=== PATIENT | male | born 1930 | race Caucasian/White ===

== ENCOUNTER → 2016-08-31 | Outpatient (CLI) | payer MEDICARE, OTHER | DX: I10 Essential (primary) hypertension (principal); E78.5 Hyperlipidemia, unspecified; E53.8 Deficiency of other specified B group vitamins; E03.9 Hypothyroidism, unspecified ==

== ENCOUNTER 2016-09-13 08:43 | Outpatient (CLI) | payer MEDICARE, OTHER | END 2016-09-13 08:44 | disposition home or self-care (01) | DX: G47.31 Primary central sleep apnea (principal); G25.81 Restless legs syndrome | CPT/HCPCS: 99205; G0463 ==

== ENCOUNTER 2016-09-26 09:01 | Outpatient (CLI) | payer MEDICARE, OTHER | END 2016-09-26 09:02 | disposition home or self-care (01) | DX: Z85.528 Personal history of other malignant neoplasm of kidney (principal); D63.8 Anemia in other chronic diseases classified elsewhere; C61 Malignant neoplasm of prostate; E53.8 Deficiency of other specified B group vitamins; N18.4 Chronic kidney disease, stage 4 (severe) ==

== ENCOUNTER 2016-09-30 08:40 | Outpatient (CLI) | payer MEDICARE, OTHER | END 2016-09-30 08:41 | disposition home or self-care (01) | DX: R80.9 Proteinuria, unspecified (principal) ==

== ENCOUNTER 2016-10-05 14:21 | Outpatient (CLI) | payer MEDICARE, OTHER | END 2016-10-05 14:22 | disposition home or self-care (01) | DX: N17.9 Acute kidney failure, unspecified (principal); Z90.5 Acquired absence of kidney ==

== ENCOUNTER 2016-10-09 20:22 | Outpatient (CLI) | payer MEDICARE, OTHER | END 2016-10-09 20:23 | disposition home or self-care (01) | DX: G47.33 Obstructive sleep apnea (adult) (pediatric) (principal); G47.61 Periodic limb movement disorder ==

== ENCOUNTER 2016-11-01 13:25 | Outpatient (CLI) | payer MEDICARE, OTHER | END 2016-11-01 13:26 | disposition home or self-care (01) | DX: N05.9 Unspecified nephritic syndrome with unspecified morphologic changes (principal); E83.30 Disorder of phosphorus metabolism, unspecified; N25.81 Secondary hyperparathyroidism of renal origin ==

== ENCOUNTER 2016-11-01 14:19 | Outpatient (CLI) | payer MEDICARE, OTHER | END 2016-11-01 14:20 | disposition home or self-care (01) | DX: G47.31 Primary central sleep apnea (principal); G47.61 Periodic limb movement disorder; N05.9 Unspecified nephritic syndrome with unspecified morphologic changes; E83.30 Disorder of phosphorus metabolism, unspecified; N25.81 Secondary hyperparathyroidism of renal origin | CPT/HCPCS: 36415; 80048; 83970; 84100; 99214; G0463 ==

== ENCOUNTER 2016-12-06 09:54 | Outpatient (CLI) | payer MEDICARE, OTHER | END 2016-12-06 09:55 | disposition home or self-care (01) | DX: G47.31 Primary central sleep apnea (principal) | CPT/HCPCS: 99214; G0463 ==

== ENCOUNTER 2017-01-16 09:35 | Outpatient (CLI) | payer MEDICARE, OTHER ==
[2017-01-16 14:34] LABS: HCT - HEMATOCRIT 35.7 % (42.0-52.0); HGB - HEMOGLOBIN 12.2 g/dL (14.0-18.0); MEAN CORPUSCULAR HEMOGLOBIN 33.2 pg (27.0-31.0); MEAN CORPUSCULAR HGB CONC 34.1 g/dL (32.0-36.0); MEAN CORPUSCULAR VOLUME 97.3 fL (80.0-94.0); MEAN PLATELET VOLUME 8.9 fL (7.4-11.4); RED BLOOD COUNT 3.67 10^6/uL (4.70-6.10); RED CELL DISTRIBUTION WIDTH 13.3 % (12.0-15.0); WHITE BLOOD COUNT 7.5 x10^3/uL (4.8-10.8)
[2017-01-16 14:52] LABS: CALCIUM 9.4 mg/dL (8.5-10.3); POTASSIUM 4.4 mmol/L (3.5-5.0)
== END 2017-01-16 09:36 | disposition home or self-care (01) ==
LOC: LAB.WCP 09:35
PROVIDERS: ATTEND Family Medicine
DX: R60.9 Edema, unspecified (principal)
CPT/HCPCS: 36415; 80048; 83880; 85025

== ENCOUNTER 2017-01-20 12:26 | Outpatient (CLI) | payer MEDICARE, OTHER | END 2017-01-20 12:27 | disposition home or self-care (01) | LOC: DI 12:26 | PROVIDERS: ATTEND Family Medicine | DX: R60.9 Edema, unspecified (principal); I12.9 Hypertensive chronic kidney disease with stage 1 through stage 4 chronic kidney disease, or unspecified chronic kidney disease; N18.3 Chronic kidney disease, stage 3 (moderate); I51.7 Cardiomegaly; I34.0 Nonrheumatic mitral (valve) insufficiency | CPT/HCPCS: 93306 ==

== ENCOUNTER 2017-03-17 11:42 | Outpatient (CLI) | payer MEDICARE, OTHER ==
--- NOTE | 2017-03-17 14:55 | XRAY Report ---
TWO-VIEW LEFT KNEE: 03/17/2017 CLINICAL INDICATION: Pain. FINDINGS: Frontal and lateral views of the left knee demonstrate no evidence of fracture or dislocat ion. No effusion is present. IMPRESSION: NORMAL LEFT KNEE. JOB #: [id number] EXT JOB #:[id number]
== END 2017-03-17 11:43 | disposition home or self-care (01) ==
LOC: DI 11:42
PROVIDERS: ATTEND Family Medicine
DX: M25.562 Pain in left knee (principal)

== ENCOUNTER 2017-04-11 13:46 | Outpatient (CLI) | payer MEDICARE, OTHER | END 2017-04-11 13:47 | disposition home or self-care (01) | LOC: SC 13:46 | PROVIDERS: ATTEND Specialist | DX: G47.33 Obstructive sleep apnea (adult) (pediatric) (principal) | CPT/HCPCS: 99214; G0463; 99212 ==

== ENCOUNTER 2017-05-10 14:54 | Outpatient (CLI) | payer MEDICARE, OTHER ==
[2017-05-10 19:12] LABS: BASOPHILS % (AUTO) 0.4 %; EOSINOPHILS % (AUTO) 0.3 %; HCT - HEMATOCRIT 37.2 % (42.0-52.0); HGB - HEMOGLOBIN 12.3 g/dL (14.0-18.0); LYMPHOCYTES # (AUTO) 0.7 10^3/uL (1.5-3.5); LYMPHOCYTES % (AUTO) 6.3 %; MEAN CORPUSCULAR HEMOGLOBIN 32.7 pg (27.0-31.0); MEAN CORPUSCULAR HGB CONC 32.9 g/dL (32.0-36.0); MEAN CORPUSCULAR VOLUME 99.4 fL (80.0-94.0); MEAN PLATELET VOLUME 8.5 fL (7.4-11.4); MONOCYTES # (AUTO) 1.1 10^3/uL (0.0-1.0); MONOCYTES % (AUTO) 9.2 %; NEUTROPHILS # (AUTO) 9.6 10^3/uL (1.5-6.6); NEUTROPHILS % (AUTO) 83.8 %; RED BLOOD COUNT 3.75 10^6/uL (4.70-6.10); RED CELL DISTRIBUTION WIDTH 14.5 % (12.0-15.0); UNCORRECTED WHITE BLOOD COUNT 11.4 x10^3/uL; WHITE BLOOD COUNT 11.4 x10^3/uL (4.8-10.8)
[2017-05-10 19:36] LABS: ALBUMIN/GLOBULIN RATIO 1.7 (1.0-2.2); CALCIUM 9.3 mg/dL (8.5-10.3); CREATININE 1.8 mg/dL (0.6-1.2); POTASSIUM 4.3 mmol/L (3.5-5.0)
[2017-05-10 19:42] LABS: IRON 57 ug/dL (45-182); TOTAL IRON BINDING CAPACITY 319 ug/dL (250-450); TRANSFERRIN 228 mg/dL (180-329)
[2017-05-10 19:55] LABS: PLATELET ESTIMATE, MANUAL NORMAL (130-450,000) (NORMAL); PLATELET MORPHOLOGY NORMAL APPEARANCE (NORMAL); WBC MORPHOLOGY (MULTIPLE) 1+ HYPERSEG NEUT (NORMAL)
== END 2017-05-10 14:55 | disposition home or self-care (01) ==
LOC: LAB.WCP 14:54
PROVIDERS: ATTEND Family Medicine
DX: N18.3 Chronic kidney disease, stage 3 (moderate) (principal); E53.8 Deficiency of other specified B group vitamins; D63.8 Anemia in other chronic diseases classified elsewhere; D50.0 Iron deficiency anemia secondary to blood loss (chronic); N05.9 Unspecified nephritic syndrome with unspecified morphologic changes; D70.9 Neutropenia, unspecified; D63.1 Anemia in chronic kidney disease
CPT/HCPCS: 36415; 80053; 82607; 82728; 83540; 84466; 85025

== ENCOUNTER 2017-05-30 20:30 | Outpatient (CLI) | payer MEDICARE, OTHER | END 2017-05-30 20:31 | disposition home or self-care (01) | LOC: SC 20:30 | PROVIDERS: ATTEND Specialist | DX: G47.33 Obstructive sleep apnea (adult) (pediatric) (principal); G47.31 Primary central sleep apnea | CPT/HCPCS: 95811 ==

== ENCOUNTER 2017-06-15 08:34 | Outpatient (CLI) | payer MEDICARE, OTHER | END 2017-06-15 08:35 | disposition home or self-care (01) | LOC: SC 08:34 | PROVIDERS: ATTEND Specialist | DX: G47.33 Obstructive sleep apnea (adult) (pediatric) (principal); G47.31 Primary central sleep apnea | CPT/HCPCS: 99214; G0463; 99212 ==

== ENCOUNTER 2017-06-28 15:59 | Outpatient (CLI) | payer MEDICARE, OTHER ==
[2017-06-28 12:45] LABS: BASOPHILS % (AUTO) 0.2 %; EOSINOPHILS % (AUTO) 1.1 %; HCT - HEMATOCRIT 36.9 % (42.0-52.0); HGB - HEMOGLOBIN 12.8 g/dL (14.0-18.0); LYMPHOCYTES % (AUTO) 8.3 %; MEAN CORPUSCULAR HEMOGLOBIN 34.4 pg (27.0-31.0); MEAN CORPUSCULAR HGB CONC 34.8 g/dL (32.0-36.0); MEAN PLATELET VOLUME 7.9 fL (7.4-11.4); MONOCYTES % (AUTO) 9.9 %; NEUTROPHILS % (AUTO) 80.5 %; RED BLOOD COUNT 3.73 10^6/uL (4.70-6.10); UNCORRECTED WHITE BLOOD COUNT 11.9 x10^3/uL; WHITE BLOOD COUNT 11.9 x10^3/uL (4.8-10.8)
[2017-06-28 12:56] LABS: CALCIUM 9.2 mg/dL (8.5-10.3); CREATININE 1.8 mg/dL (0.6-1.2); POTASSIUM 4.3 mmol/L (3.5-5.0)
[2017-06-28 13:02] LABS: BAND NEUTROPHILS % (MANUAL) 0 %
[2017-06-28 13:04] LABS: EOSINOPHILS % (MANUAL) 2 %; LYMPHOCYTES % (MANUAL) 10 %; NEUTROPHILS % (MANUAL) 72 %; TOTAL CELLS COUNTED 100
[2017-06-28 13:05] LABS: NP AUTO DIFFERENTIAL? YES; NP MAN DIFFERENTIAL? NO; PLATELET ESTIMATE, MANUAL NORMAL (130-450,000) (NORMAL); PLATELET MORPHOLOGY NORMAL APPEARANCE (NORMAL); WBC MORPHOLOGY (MULTIPLE) NORMAL APP (NORMAL)
== END 2017-06-28 16:00 | disposition home or self-care (01) ==
LOC: LAB.WCP 15:59
PROVIDERS: ATTEND Family Medicine
DX: N18.3 Chronic kidney disease, stage 3 (moderate) (principal); M12.852 Other specific arthropathies, not elsewhere classified, left hip
CPT/HCPCS: 36415; 80048; 85025; 87640

== ENCOUNTER 2017-07-13 09:32 | Outpatient (CLI) | payer MEDICARE, OTHER | END 2017-07-13 09:33 | disposition home or self-care (01) | LOC: SC 09:32 | PROVIDERS: ATTEND Specialist | DX: G47.31 Primary central sleep apnea (principal); G47.39 Other sleep apnea | CPT/HCPCS: 99214; G0463; 99212 ==

== ENCOUNTER 2017-08-21 10:57 | Outpatient (CLI) | payer MEDICARE, OTHER | END 2017-08-21 10:58 | disposition home or self-care (01) | LOC: SC 10:57 | PROVIDERS: ATTEND Internal Medicine Pulmonary Disease | DX: G47.39 Other sleep apnea (principal); Z01.812 Encounter for preprocedural laboratory examination; M16.12 Unilateral primary osteoarthritis, left hip | CPT/HCPCS: 36415; 86850; 86900; 86901; 99213; G0463; 99212 ==

== ENCOUNTER 2017-08-21 15:29 | Outpatient (CLI) | payer MEDICARE, OTHER | END 2017-08-21 15:30 | disposition home or self-care (01) | LOC: LAB 15:29 | PROVIDERS: ATTEND Orthopaedic Surgery | DX: Z01.812 Encounter for preprocedural laboratory examination (principal); M16.12 Unilateral primary osteoarthritis, left hip | CPT/HCPCS: 36415; 86850; 86900; 86901 ==

== ENCOUNTER 2017-08-22 07:30 | Inpatient (IN) | payer MEDICARE, OTHER ==
[2017-08-22] MEDS ORDERED: ceFAZolin 2 GM/50 ML 2 GM/50 ML BAG IV ONE (08:46)
[2017-08-22] MEDS ORDERED: LACTATED RINGERS 1,000 ML IV ONE ×3 (09:41→12:47)
[2017-08-22] MEDS ORDERED: ACETAMINOPHEN 1,000 MG/100 ML 100 ML IV ONE (10:12)
[2017-08-22] MEDS ORDERED: LIDOCAINE-MPF 2% 5 ML VIAL IM ONE (11:00)
[2017-08-22] MEDS ORDERED: TRANEXAMIC ACID 1,000 MG/10 ML VIAL IV ONE (11:00)
[2017-08-22] MEDS ORDERED: fentaNYL 100 MCG/2 ML VIAL IVP ONE (11:00)
[2017-08-22] MEDS ORDERED: PROPOFOL 200 MG/20 ML VIAL IVP ONE (11:00)
[2017-08-22] MEDS ORDERED: GLYCOPYRROLATE 1 MG/5 ML VIAL IVP ONE (11:00)
[2017-08-22] MEDS ORDERED: NEOSTIGMINE 1 MG/1 ML 10 ML MDV IVP ONE (11:00)
[2017-08-22] MEDS ORDERED: MORPHINE PF 5 MG/10 ML AMP EP ONE (11:00)
[2017-08-22] MEDS ORDERED: DEXAMETHASONE 4 MG/ML VIAL IVP ONE (11:00)
[2017-08-22] MEDS ORDERED: ONDANSETRON 4 MG/2 ML VIAL IVP ONE (11:00)
[2017-08-22] MEDS ORDERED: ROCURONIUM 50 MG/5 ML VIAL IVP ONE (11:00)
[2017-08-22] MEDS ORDERED: MORPHINE PF 5 MG/10 ML AMP SUBQ ONE (11:34)
[2017-08-22] MEDS ORDERED: KETOROLAC 15 MG/ML VIAL IVP ONE (11:35)
[2017-08-22] MEDS ORDERED: EPINEPHrine 1 MG/ML AMP IVP ONE (11:36)
[2017-08-22] MEDS ORDERED: ROPIVACAINE 0.5% PF 20 ML AMPULE SUBQ ONE (11:41)
[2017-08-22] MEDS ORDERED: BUPIVACAINE 0.5% PF 30 ML VIAL INFIL ONE (12:58)
--- NOTE | 2017-08-22 13:21 | OPERATIVE REPORT ---
Operative Report - General Admit Date: 08/22/17 Procedure Date: 08/22/17 Planned Procedure: Left WILLOW Pre-Op Diagnosis: severe DJD left hip Procedure Performed: Left Total hip replacement Post Op Diagnosis: same - Procedure Note Primary Surgeon: sam Anesthesia Provider: Yimi Leroy Anesthesia Technique: General ET tube Estimated Blood Loss (mL): 300
[2017-08-22] MEDS ORDERED: ONDANSETRON 4 MG/2 ML VIAL IVP PRN (13:23)
[2017-08-22] MEDS ORDERED: ACETAMINOPHEN 1,000 MG/100 ML 100 ML IV PRN (13:23)
[2017-08-22] MEDS ORDERED: SODIUM CHLORIDE FLUSH 0.9% 10 ML SYRINGE IVP PRN (13:23)
[2017-08-22] MEDS ORDERED: PROCHLORPERAZINE 10 MG/2 ML VIAL IVP PRN (13:23)
[2017-08-22] MEDS ORDERED: HYDROmorphone 1 MG/ML SYRINGE IVP PRN (13:23)
[2017-08-22] MEDS ORDERED: ACETAMINOPHEN 325 MG TABLET PO PRN (13:23)
[2017-08-22] MEDS ORDERED: BISACODYL 10 MG SUPP PR PRN (13:23)
[2017-08-22] MEDS: HYDROmorphone 1 MG/ML SYRINGE ONE ×3 (13:35→14:16)
[2017-08-22] MEDS ORDERED: HYDROmorphone 1 MG/ML SYRINGE ONE (14:13)
--- NOTE | 2017-08-22 18:23 | OPERATIVE REPORT ---
DATE OF SERVICE: 08/22/2017 Physician: Christine Mariee MD DATE OF SURGERY: 08/22/2017. PREOPERATIVE DIAGNOSIS: Left hip osteoarthritis. POSTOPERATIVE DIAGNOSIS: Left hip osteoarthritis. PROCEDURE PERFORMED: Left total hip replacement arthroplasty. OPERATING SURGEON: Leonard Mariee ANESTHESIA: General by Colleen Barker. INDICATIONS FOR SURGERY: Juan is an 87-year-old male with progressive severe arthritis of his left hip, who has had ongoing hip pain and diminished functional activities. He has failed nonoperative treatment. He desires total hip arthroplasty. FINDINGS AT SURGERY: The patient's hip showed diminished range of motion and slight shortening. At arthrotomy, the patient had bloody hemarthrosis in his hip and some loose bodies. His femoral head was misshapen and polished bone. The acetabulum was equally misshapen. The patient's acetabular bone density was very strong on the femoral side, more appropriate for age. DESCRIPTION OF OPERATIVE PROCEDURE: The patient was taken to the operating room and was given a general anesthetic. He was given preoperative IV antibiotics. He was in the supine position. He was positioned for an anterior approach total hip arthroplasty on a standard table with the hinge on the table at the level of his hip. The patient's bilateral lower extremities were sterilely prepped and draped in standard fashion. The area of planned incision on the anterior hip was exposed, marked, and infiltrated after the timeout with Marcaine with epinephrine. Incision was made 8 cm in length directed from anterior superior iliac spine down towards the femur. Incision was dissecting through the soft tissue down to the tensor fascia muscle and its overlying tensor fascia. This was incised in line with the muscle and the inner flap of muscle was reflected from the fascia developing the Raza-Marshall interval for an anterior approach down to the hip. The hip capsule was ultimately exposed with retractors and the fat pad and scar tissue in the area excised. The anterior capsulectomy was performed and retractors were positioned around the femoral neck to allow an osteotomy section of the neck and removal of about a 1 inch section of the neck. Following this, a corkscrew was used to remove the femoral head and it was inspected after which retractors were positioned around the acetabular cavity. The patient's soft tissues were very tight and the exposure was difficult to obtain. Once it was satisfactorily obtained, reaming began with a plan to ream to 51 for a 52 cup. The patient had severely dense bone in his acetabulum and the degree of hemispherical creation by a 51 reamer was not satisfactory and the cup implantation was also not adequate. So the reaming was deepened to allow up to a 53 reamer for a 54 cup and this cup settled into a nice position, was able to be held with screws for security. Anteversion and abduction angle of cup was judged by the insertion guides. A standard poly was inserted into the cup. The femur was then carefully exposed by releasing capsule and some of the short rotators to the hip to allow exposure of the proximal femur and initial rasp insertion for canal finding followed by sequential broaching up to accommodate a size 12 Taperloc stem. This stem was trialed and a trial reduction performed showing excellent jew of limb length, excellent stability to anterior and posterior stress, and jew of muscle tension. The trial femoral component and neck and head were removed. The stem was irrigated thoroughly. The femur and Taperloc stem inserted with a neutral 40 mm head size and a normal offset. This yielded a very stable construct and was reduced into the acetabulum, checked for stability and was excellent. Closure of the hip was done with sequential layers, repairing the anterior muscle layer with Vicryl, including the overlying tensor fascia, the subcutaneous tissue with 0 and 2-0 Vicryl, and the skin with 3-0 Monocryl interrupted. A sterile silver-containing dressing was applied and a soft over dressing of ABDs. The patient was then taken from the OR table to a hospital bed and to the recovery room in stable condition. ESTIMATED BLOOD LOSS for the procedure was less than 200-300 mL COMPLICATIONS: None. COUNTS: Sponge and needle counts were correct. TD: 08/22/2017 19:22
--- NOTE | 2017-08-22 19:51 | XRAY Report ---
DATE OF SERVICE: 08/22/2017 LEFT HIP AND PELVIS: 08/22/2017 CLINICAL INDICATION: Postop. Frontal view of the hips and pelvis and crosstable lateral view of the left hip demonstrate a left hip replacement in place. There is no evidence of acute fracture or hardware complication. Subcutaneous gas is noted in the soft tissues. IMPRESSION: Expected postoperative appearance of left hip replacement. TD: 08/22/2017 20:50
[2017-08-22] MEDS: D5.45NS W/20 MEQ KCL 1,000 ML IV SCH (20:02)
[2017-08-22] MEDS: SODIUM CHLORIDE FLUSH 0.9% 10 ML SYRINGE IVP SCH ×2 (20:02→23:05)
[2017-08-22] MEDS: hydrOXYzine PAMOATE 25 MG CAPSULE PO SCH (20:02)
[2017-08-22] MEDS: DOXAZOSIN 4 MG TABLET PO SCH (20:02)
[2017-08-22] MEDS: amLODIPine 5 MG TABLET PO SCH (20:03)
[2017-08-22] MEDS: rOPINIRole 1 MG TABLET PO SCH (20:03)
[2017-08-22] MEDS ORDERED: TRIAMCINOLONE 55 MCG NASAL SPRAY NAS SCH (21:00)
[2017-08-22] MEDS ORDERED: ENALAPRIL 5 MG TABLET PO SCH (21:00)
[2017-08-22] MEDS: ceFAZolin 2 GM/50 ML 2 GM/50 ML BAG IV SCH (21:57)
[2017-08-23] MEDS: HYDROcod/ACETAM 5/325 MG TABLET PO PRN ×4 (00:04→18:28)
[2017-08-23 05:07] LABS: BASOPHILS % (AUTO) 0.1 %; HGB - HEMOGLOBIN 9.4 g/dL (14.0-18.0); LYMPHOCYTES % (AUTO) 3.9 %; MEAN CORPUSCULAR HEMOGLOBIN 32.6 pg (27.0-31.0); MEAN CORPUSCULAR HGB CONC 32.8 g/dL (32.0-36.0); MEAN CORPUSCULAR VOLUME 99.4 fL (80.0-94.0); MEAN PLATELET VOLUME 8.8 fL (7.4-11.4); MONOCYTES % (AUTO) 9.9 %; NEUTROPHILS % (AUTO) 86.1 %; PLT - PLATELET COUNT 196 10^3/uL (130-450); RED BLOOD COUNT 2.87 10^6/uL (4.70-6.10); RED CELL DISTRIBUTION WIDTH 13.7 % (12.0-15.0); WHITE BLOOD COUNT 16.2 x10^3/uL (4.8-10.8)
[2017-08-23 05:09] LABS: CALCIUM 7.8 mg/dL (8.5-10.3); CREATININE 1.7 mg/dL (0.6-1.2)
[2017-08-23 05:41] LABS: ABNORMAL LYMPHS % (MANUAL) 0 %
[2017-08-23] MEDS ORDERED: LEVOTHYROXINE 25 MCG TABLET ONE (05:54)
[2017-08-23] MEDS: LEVOTHYROXINE 25 MCG TABLET PO SCH (05:57)
[2017-08-23] MEDS: ceFAZolin 2 GM/50 ML 2 GM/50 ML BAG IV SCH (05:57)
[2017-08-23] MEDS: SODIUM CHLORIDE FLUSH 0.9% 10 ML SYRINGE IVP SCH ×3 (05:58→20:57)
[2017-08-23 06:00] LABS: BAND NEUTROPHILS % (MANUAL) 5 %; LYMPHOCYTES % (MANUAL) 6 %; MONOCYTES # (MANUAL) 0.6 10^3/uL (0.0-1.0); NEUTROPHILS # (MANUAL) 14.6 10^3/uL (1.5-6.6); NEUTROPHILS % (MANUAL) 85 %
[2017-08-23 06:02] LABS: DIFFERENTIAL COMMENT MANUAL DIFFERENTIAL; PLATELET ESTIMATE, MANUAL NORMAL (130-450,000) (NORMAL); PLATELET MORPHOLOGY NORMAL APPEARANCE (NORMAL); RBC MORPHOLOGY (MULTIPLE) NORMAL APPEARANCE (NORMAL)
[2017-08-23] MEDS: D5.45NS W/20 MEQ KCL 1,000 ML IV SCH ×2 (06:07→13:09)
--- NOTE | 2017-08-23 08:10 | PROVIDER PROGRESS NOTE ---
Subjective - General Admit Date: 08/22/17 Procedure Date: 08/22/17 Post Op Days: 1 Procedure Performed: Left Total Hip arthroplasty - Review of Systems Wound/Incisions: positive: Dressing dry and intact Gastrointestinal: positive: No symptoms Musculoskeletal: positive: Joint pain, Joint swelling Skin: positive: No symptoms Psychiatric: positive: No symptoms Objective - Patient Data Reviewed Vital Signs: Yes Vital Signs: Vital Signs x48h Temp Pulse Resp BP Pulse Ox 08/23/17 05:49 36.6 C 70 16 133/60 H 99 Weight: Weight 08/21/17 08/22/17 08/23/17 23:59 23:59 23:59 Weight (kg) 78 kg Intake & Output: Intake and Output Totals x24h 08/21/17 08/22/17 08/23/17 23:59 23:59 23:59 Intake Total 550 1450 Output Total 975 200 Balance -425 1250 - Lab Results Lab Results: 08/23/17 08:45 08/23/17 04:10 Other Lab Results: Lab Results x24hrs 08/23/17 08/23/17 Range/Units 04:10 04:10 WBC 16.2 H (4.8-10.8) x10^3/uL RBC 2.87 L (4.70-6.10) 10^6/uL Hgb 9.4 L (14.0-18.0) g/dL Hct 28.6 L (42.0-52.0) % MCV 99.4 H (80.0-94.0) fL MCH 32.6 H (27.0-31.0) pg MCHC 32.8 (32.0-36.0) g/dL RDW 13.7 (12.0-15.0) % Plt Count 196 (130-450) 10^3/uL MPV 8.8 (7.4-11.4) fL Neut # Not Reportable Lymph # Not Reportable [place] # Not Reportable Eos # Not Reportable Baso # Not Reportable Absolute Nucleated RBC Not Reportable Total Counted 100 Band Neuts % (Manual) 5 (0 - 10) % Abnorm Lymph % (Manual) 0 % Nucleated RBC % Not Reportable Neutrophils # (Manual) 14.6 H (1.5-6.6) 10^3/uL Lymphocytes # (Manual) 1.0 L (1.5-3.5) 10^3/uL Monocytes # (Manual) 0.6 (0.0-1.0) 10^3/uL Eosinophils # (Manual) 0.0 (0-0.7) 10^3/uL Basophils # (Manual) 0.0 (0-0.1) 10^3/uL Differential Comment MANUAL DIFFERENTIAL Platelet Estimate NORMAL (130-450,000) (NORMAL) Platelet Morphology NORMAL APPEARANCE (NORMAL) RBC Morph Micro Appear NORMAL APPEARANCE (NORMAL) Sodium 136 (135-145) mmol/L Potassium 4.6 (3.5-5.0) mmol/L Chloride 101 (101-111) mmol/L Carbon Dioxide 25 (21-32) mmol/L Anion Gap 10.0 (6-13) BUN 27 H (6-20) mg/dL Creatinine 1.7 H (0.6-1.2) mg/dL Estimated GFR (MDRD) 38 L (>89) Glucose 169 H (70-100) mg/dL Calcium 7.8 L (8.5-10.3) mg/dL - Current Medications Current Medications: Current Medications Generic Name Dose Route Start Last Admin Trade Name Freq PRN Reason Stop Dose Admin Acetaminophen/Hydrocodone Bitart 1 tab 08/22/17 16:14 08/23/17 05:56 [place] 5/325 PO 1 tab Q6H PRN Administration PAIN Amlodipine Besylate 5 mg 08/22/17 21:00 08/22/17 20:03 Norvasc PO 5 mg QPM EARL Administration Doxazosin Mesylate 4 mg 08/22/17 21:00 08/22/17 20:02 Cardura PO 4 mg BID EARL Administration Hydroxyzine Pamoate 25 mg 08/22/17 21:00 08/22/17 20:02 Vistaril PO 25 mg QPM EARL Administration Potassium Chloride/Dextrose/Sod Cl 1,000 mls @ 100 mls/hr 08/22/17 14:00 06:07 D5.45ns W/20 Meq Kcl IV 100 mls/hr .Q10H EARL Administration Levothyroxine Sodium 25 mcg 08/23/17 07:00 08/23/17 05:57 Synthroid PO 25 mcg QDAC EARL Administration Ropinirole HCl 2 mg 08/22/17 21:00 08/22/17 20:03 Requip PO 2 mg QPM EARL Administration Sodium Chloride 10 ml 08/22/17 14:00 08/23/17 05:58 Normal Saline Flush 0.9% IVP Not Given Q8HR EARL - Physical Exam Wound/Incisions: positive: Dressing dry and intact General Appearance: positive: No acute distress Cardiovascular: positive: Regular rate & rhythm Skin: positive: Warm, Dry Extremities: positive: Joint swelling Neurologic/Psychiatric: positive: Motor nml, Sensation nml, Mood/affect nml Impression/Plan - Problem List Problem List: POD#1 Pt is alert and doing well. claims very little pain Plan to begin PT Will watch hct/hgb. ASA for DVT prophylaxis
[2017-08-23] MEDS ORDERED: NON FORMULARY MED (Multivitamin [Multiple Vitamins] 1 TAB) ORAL SCH (09:00)
[2017-08-23] MEDS ORDERED: CALCIUM CARBONATE ORAL SCH (09:00)
[2017-08-23] MEDS ORDERED: VITAMIN D3 ORAL SCH (09:00)
[2017-08-23] MEDS: DOXAZOSIN 4 MG TABLET PO SCH ×2 (09:44→20:56)
[2017-08-23] MEDS: ATORVASTATIN 10 MG TABLET PO SCH (09:44)
[2017-08-23] MEDS: ASPIRIN EC 325 MG TABLET PO SCH (13:19)
[2017-08-23] MEDS: SENNA 8.6 MG TABLET PO PRN (13:19)
[2017-08-23] MEDS: amLODIPine 5 MG TABLET PO SCH (20:56)
[2017-08-23] MEDS: hydrOXYzine PAMOATE 25 MG CAPSULE PO SCH (20:56)
[2017-08-23] MEDS: rOPINIRole 1 MG TABLET PO SCH (20:56)
[2017-08-24] MEDS: SODIUM CHLORIDE FLUSH 0.9% 10 ML SYRINGE IVP SCH ×3 (05:33→21:09)
[2017-08-24] MEDS: HYDROcod/ACETAM 5/325 MG TABLET PO PRN ×3 (05:33→17:50)
[2017-08-24] MEDS: LEVOTHYROXINE 25 MCG TABLET PO SCH (05:33)
[2017-08-24] MEDS: POLYETHYLENE GLYCOL 3350 17 GM PACKET PO SCH (08:30)
[2017-08-24] MEDS: DOXAZOSIN 4 MG TABLET PO SCH ×2 (08:33→21:09)
[2017-08-24] MEDS: ATORVASTATIN 10 MG TABLET PO SCH (08:33)
[2017-08-24] MEDS: ASPIRIN EC 325 MG TABLET PO SCH (08:33)
[2017-08-24] MEDS: SENNA 8.6 MG TABLET PO PRN ×2 (08:33→21:09)
--- NOTE | 2017-08-24 09:00 | PROVIDER PROGRESS NOTE ---
Subjective - General Admit Date: 08/22/17 Procedure Date: 08/22/17 Post Op Days: 2 Procedure Performed: Left Total Hip arthroplasty - Review of Systems Wound/Incisions: positive: Dressing dry and intact Gastrointestinal: positive: No symptoms Musculoskeletal: positive: Joint pain, Joint swelling Skin: positive: No symptoms Psychiatric: positive: No symptoms Objective - Patient Data Reviewed Vital Signs: Yes Vital Signs: Vital Signs x48h Temp Pulse Resp BP Pulse Ox 08/24/17 08:23 73 15 100/77 08/24/17 05:11 36.6 C 85 16 143/60 H 95 08/24/17 01:37 36.8 C 95 16 156/73 H 97 Weight: Weight 08/22/17 08/23/17 08/24/17 23:59 23:59 23:59 Weight (kg) 78 kg Intake & Output: Intake and Output Totals x24h 08/22/17 08/23/17 08/24/17 23:59 23:59 23:59 Intake Total 550 4090 520 Output Total 975 475 650 Balance -425 3615 -130 - Lab Results Lab Results: 08/24/17 10:15 08/23/17 04:10 Other Lab Results: Lab Results x24hrs 08/23/17 Range/Units 08:45 Hgb 9.0 L (14.0-18.0) g/dL Hct 26.8 L (42.0-52.0) % - Current Medications Current Medications: Current Medications Generic Name Dose Route Start Last Admin Trade Name Freq PRN Reason Stop Dose Admin Acetaminophen/Hydrocodone Bitart 1 tab 08/22/17 16:14 08/24/17 05:33 [place] 5/325 PO 1 tab Q6H PRN Administration PAIN Amlodipine Besylate 5 mg 08/22/17 21:00 08/23/17 20:56 Norvasc PO 5 mg QPM EARL Administration Aspirin 325 mg 08/23/17 12:00 08/24/17 08:33 Ecotrin PO 325 mg DAILY EARL Administration Atorvastatin Calcium 10 mg 08/23/17 09:00 08/24/17 08:33 Lipitor PO 10 mg DAILY EARL Administration Doxazosin Mesylate 4 mg 08/22/17 21:00 08/24/17 08:33 Cardura PO 4 mg BID EARL Administration Hydroxyzine Pamoate 25 mg 08/22/17 21:00 08/23/17 20:56 Vistaril PO 25 mg QPM EARL Administration Levothyroxine Sodium 25 mcg 08/23/17 07:00 08/24/17 05:33 Synthroid PO 25 mcg QDAC EARL Administration Polyethylene Glycol 17 gm 08/24/17 09:00 08/24/17 08:30 Miralax PO 17 gm DAILY EARL Administration Ropinirole HCl 2 mg 08/22/17 21:00 08/23/17 20:56 Requip PO 2 mg QPM EARL Administration Senna 17.2 mg 08/22/17 13:23 08/24/17 08:33 Senokot PO 17.2 mg Q12H PRN Administration Constipation Sodium Chloride 10 ml 08/22/17 14:00 08/24/17 05:33 Normal Saline Flush 0.9% IVP 10 ml Q8HR EARL Administration - Physical Exam Wound/Incisions: positive: Dressing dry and intact General Appearance: positive: No acute distress Abdomen: positive: No distention Skin: positive: Warm, Dry Extremities: positive: Joint swelling Neurologic/Psychiatric: positive: Motor nml, Sensation nml, Mood/affect nml Impression/Plan - Problem List Problem List: POD #2 Pt is doing better with less pain. PT has begun. suggested plan for SNF placement at discharge.
[2017-08-24 10:45] LABS: BASOPHILS % (AUTO) 0.1 %; EOSINOPHILS % (AUTO) 0.1 %; LYMPHOCYTES # (AUTO) 0.6 10^3/uL (1.5-3.5); LYMPHOCYTES % (AUTO) 5.6 %; MEAN CORPUSCULAR HEMOGLOBIN 34.1 pg (27.0-31.0); MEAN CORPUSCULAR HGB CONC 34.3 g/dL (32.0-36.0); MEAN CORPUSCULAR VOLUME 99.6 fL (80.0-94.0); MEAN PLATELET VOLUME 8.9 fL (7.4-11.4); MONOCYTES # (AUTO) 1.2 10^3/uL (0.0-1.0); MONOCYTES % (AUTO) 11.7 %; NEUTROPHILS # (AUTO) 8.6 10^3/uL (1.5-6.6); NEUTROPHILS % (AUTO) 82.5 %; PLT - PLATELET COUNT 158 10^3/uL (130-450); RED BLOOD COUNT 2.63 10^6/uL (4.70-6.10); RED CELL DISTRIBUTION WIDTH 13.9 % (12.0-15.0); WHITE BLOOD COUNT 10.4 x10^3/uL (4.8-10.8)
[2017-08-24] MEDS: amLODIPine 5 MG TABLET PO SCH (21:09)
[2017-08-24] MEDS: rOPINIRole 1 MG TABLET PO SCH (21:09)
[2017-08-24] MEDS: hydrOXYzine PAMOATE 25 MG CAPSULE PO SCH (21:09)
[2017-08-25] MEDS: HYDROcod/ACETAM 5/325 MG TABLET PO PRN ×2 (04:25→12:33)
[2017-08-25 05:06] LABS: HGB - HEMOGLOBIN 9.1 g/dL (14.0-18.0); MEAN CORPUSCULAR HEMOGLOBIN 33.6 pg (27.0-31.0); MEAN CORPUSCULAR HGB CONC 34.1 g/dL (32.0-36.0); MEAN CORPUSCULAR VOLUME 98.5 fL (80.0-94.0); MEAN PLATELET VOLUME 8.6 fL (7.4-11.4); RED BLOOD COUNT 2.71 10^6/uL (4.70-6.10); RED CELL DISTRIBUTION WIDTH 13.7 % (12.0-15.0); WHITE BLOOD COUNT 10.9 x10^3/uL (4.8-10.8)
[2017-08-25] MEDS ORDERED: MAGNESIUM HYDROXIDE 2,400 MG/30 ML UDC PO SCH (06:00)
[2017-08-25] MEDS: LEVOTHYROXINE 25 MCG TABLET PO SCH (06:58)
[2017-08-25] MEDS: SODIUM CHLORIDE FLUSH 0.9% 10 ML SYRINGE IVP SCH (07:00)
[2017-08-25] MEDS: ATORVASTATIN 10 MG TABLET PO SCH (08:16)
[2017-08-25] MEDS: DOXAZOSIN 4 MG TABLET PO SCH (08:16)
[2017-08-25] MEDS: ASPIRIN EC 325 MG TABLET PO SCH (08:16)
[2017-08-25] MEDS: POLYETHYLENE GLYCOL 3350 17 GM PACKET PO SCH (08:17)
[2017-08-25] MEDS ORDERED: DOCUSATE SODIUM 250 MG CAPSULE PO SCH (09:00)
[2017-08-25 09:06] VITALS: BP 141/50
--- NOTE | 2017-08-25 09:26 | PROVIDER PROGRESS NOTE ---
Subjective - General Admit Date: 08/22/17 Procedure Date: 08/22/17 Post Op Days: 3 Procedure Performed: Left Total Hip arthroplasty - Review of Systems Wound/Incisions: positive: Dressing dry and intact Gastrointestinal: positive: No symptoms Musculoskeletal: positive: Joint pain, Joint swelling Skin: positive: No symptoms Psychiatric: positive: No symptoms Objective - Patient Data Reviewed Vital Signs: Yes Vital Signs: Vital Signs x48h Temp Pulse Resp BP Pulse Ox 08/25/17 09:04 37.1 C 88 18 141/50 H 93 08/25/17 08:00 36.9 C 87 18 136/91 H 93 08/25/17 04:00 37.2 C 69 20 153/70 H 98 Intake & Output: Intake and Output Totals x24h 08/23/17 08/24/17 08/25/17 23:59 23:59 23:59 Intake Total 4090 1230 Output Total 475 950 375 Balance 3615 280 -375 - Lab Results Lab Results: 08/25/17 04:33 08/23/17 04:10 Other Lab Results: Lab Results x24hrs 08/25/17 08/24/17 Range/Units 04:33 10:15 WBC 10.9 H 10.4 (4.8-10.8) x10^3/uL RBC 2.71 L 2.63 L (4.70-6.10) 10^6/uL Hgb 9.1 L 9.0 L (14.0-18.0) g/dL Hct 26.7 L 26.2 L (42.0-52.0) % MCV 98.5 H 99.6 H (80.0-94.0) fL MCH 33.6 H 34.1 H (27.0-31.0) pg MCHC 34.1 34.3 (32.0-36.0) g/dL RDW 13.7 13.9 (12.0-15.0) % Plt Count 180 158 (130-450) 10^3/uL MPV 8.6 8.9 (7.4-11.4) fL Neut # 8.6 H (1.5-6.6) 10^3/uL Lymph # 0.6 L (1.5-3.5) 10^3/uL [place] # 1.2 H (0.0-1.0) 10^3/uL Eos # 0.0 (0.0-0.7) 10^3/uL Baso # 0.0 (0.0-0.1) 10^3/uL Absolute Nucleated RBC 0.00 x10^3/uL Nucleated RBC % 0.0 /100WBC - Current Medications Current Medications: Current Medications Generic Name Dose Route Start Last Admin Trade Name Freq PRN Reason Stop Dose Admin Acetaminophen/Hydrocodone Bitart 1 tab 08/22/17 16:14 08/25/17 04:25 [place] 5/325 PO 1 tab Q6H PRN Administration PAIN Amlodipine Besylate 5 mg 08/22/17 21:00 08/24/17 21:09 Norvasc PO 5 mg QPM EARL Administration Aspirin 325 mg 08/23/17 12:00 08/25/17 08:16 Ecotrin PO 325 mg DAILY EARL Administration Atorvastatin Calcium 10 mg 08/23/17 09:00 08/25/17 08:16 Lipitor PO 10 mg DAILY EARL Administration Docusate Sodium 250 - 500 mg 08/25/17 09:00 08/25/17 08:16 Colace 250mg Capsule PO 250 mg DAILY EARL Administration Doxazosin Mesylate 4 mg 08/22/17 21:00 08/25/17 08:16 Cardura PO 4 mg BID EARL Administration Hydroxyzine Pamoate 25 mg 08/22/17 21:00 08/24/17 21:09 Vistaril PO 25 mg QPM EARL Administration Levothyroxine Sodium 25 mcg 08/23/17 07:00 08/25/17 06:58 Synthroid PO 25 mcg QDAC EARL Administration Magnesium Hydroxide 2,400 - 4,800 mg 08/25/17 06:00 08/25/17 06:59 Milk Of Magnesia PO 08/25/17 10:00 Not Given ONCE EARL Polyethylene Glycol 17 gm 08/24/17 09:00 08/25/17 08:17 Miralax PO 17 gm DAILY EARL Administration Ropinirole HCl 2 mg 08/22/17 21:00 08/24/17 21:09 Requip PO 2 mg QPM EARL Administration Senna 17.2 mg 08/22/17 13:23 08/24/17 21:09 Senokot PO 17.2 mg Q12H PRN Administration Constipation Sodium Chloride 10 ml 08/22/17 14:00 01/26/18 07:00 Normal Saline Flush 0.9% IVP 10 ml Q8HR EARL Administration - Physical Exam Wound/Incisions: positive: Dressing dry and intact General Appearance: positive: No acute distress Skin: positive: Warm, Dry Extremities: positive: Joint swelling Neurologic/Psychiatric: positive: Motor nml, Sensation nml, Mood/affect nml Impression/Plan - Problem List Problem List: POD #3 Pt is doing well with very little discomfort Still has intermittent confusion. PT in SNF care needed.
--- NOTE | 2017-08-25 10:52 | Discharge Plan ---
"Discharge Plan for SNF / [facility] - DC Plan and Transition Orders Disposition: 03 SNF DC/Xfer Condition: Good SNF Transition Orders: Admit to: [facility] under the care of Dr. Flako Allred Discharge Diagnosis: Left total hip arthroplasty Medicare Certification: I certify that Post Hospital alf care is medically necessary on a continuing basis for any of the conditions for which she/he is receiving care during hospitalization. Notify PCP of admission and forward orders to primary provider for signature. Weight on admission and weekly. Call PCP immediately if weight increases by 5 pounds or if patient develops dyspnea, chest pain/tightness or edema. House Bowel Program: yes If no BM after 2 days, nurse may give M.O.M. 30ml PO PRN and /or ducolax Supp 1 CO and /or HENOK 250mg P.O., and/or senna 1-2 tabs PO. On day 3 nurse may give repeat above order until residents constipation is resolved. Immunizations: Annual Influenza Vaccine: yes. (between Mar 31 and October 28.) Unless allergy or already given Two-Step PPD: yes per [facility] [phone] or appropriate documentation of approved exceptions Treatments & Other Orders: Physical therapy and occupational therapy, may shower with left hip dressing covered Oxygen Orders: n0 Lab Tests or X-Rays Orders: CBC with diff on 08/26/17 Orthopedic Orders: keep dressing intact, clean and dry. . Medications: PLEASE REFER TO THE DISCHARGE MEDICATION LIST. Insulin Orders? no Diagnosis: Diabetes Initiate hypo and hyperglycemia protocols for BG <70 and BG >375. May check BG prn for signs/symptoms of dysglycemia. Frequency of BG checks: [AC/Meal/HS] Basal Insulin: Lantus 100 units / ml inject subq as follows: Other: Correction Insulin: - Select the type of insulin below Choose: Novolog/Bgzudrd190 units /ml insulin inject subq per orders indicate below LOW DOSE MODERATE DOSE MODERATE/HIGH DOSE HIGH DOSE GB UNITS GB UNITS GB UNITS GB UNITS 61-140 0 UNITS 61-140 0 UNITS 61-140 0 UNITS 61-140 0 UNITS 141-175 1 UNITS 141-175 1 UNITS 141-175 2 UNITS 141-175 3 UNITS 176-225 2 UNITS 176-225 3 UNITS 176-225 4 UNITS 176-225 5 UNITS 226-275 3 UNITS 226-275 5 UNITS 226-275 6 UNITS 226-275 7 UNITS 276-325 4 UNITS 276-325 7 UNITS 276-325 8 UNITS 276-325 9 UNITS 326-375 5 UNITS 326-375 9 UNITS 326-375 10 UNITS 326-375 11 UNITS >375 CONTACT MD >375 CONTACT MD >375 CONTACT MD >375 CONTACT MD Custom Dosing: Choose: None/Novolog/Humalog 100 units/ml Insulin inject subq as follows: GB Units 61-140 Units 141-175 Units 176-225 Units 226-275 Units 276-325 Units 326-375 Units >375 Contact MD Allergies and Adverse Reactions: Allergies Allergy/AdvReac Type Severity Reaction Status Date / Time No Known Drug Allergies Allergy Verified 08/21/17 15:59 - Medications New Prescriptions: Aspirin EC [Ecotrin] 325 mg PO DAILY 30 Days #30 tablet HYDROcod/ACETAM 5/325 [[place] 5/325] 1 tab PO Q6H PRN #30 tablet PRN Reason: Pain HYDROcod/ACETAM 5/325 [[place] 5/325] 1 tab PO Q6H PRN #30 tablet PRN Reason: Severe Pain - Diet Type: Geriatric Texture: Regular Liquids: Thin May have monthly special meal: Yes - Therapies | Activity Therapy: Evaluation | Treat if indicated: PT (walker use, weight bear as tolerated. general balance and gait train), OT (ADL assist.) Rehabilitation Potential: Return to independent living Activity: Wt Bearing as Tolerated Weight Bearing: Full Weight Assistance Devices: Walker Follow Up: Ortho clinic follow-up 08/30/17"
--- NOTE | 2017-08-29 07:29 | DISCHARGE SUMMARY ---
DATE OF SERVICE: Physician: Christine Mariee MD DATE OF ADMISSION: 08/22/2017 DATE OF DISCHARGE: 08/25/2017 OPERATIVE PROCEDURE: Left hip replacement performed on 08/22/2017. REASON FOR ADMISSION: The patient is an 87-year-old male with progressive severe osteoarthritis of his hip. The patient has reached the point of severe functional limitations and difficulty with ambulation and has not responded to nonoperative treatment. Recommendation was that the patient undergo total hip arthroplasty. HOSPITAL COURSE: The patient was admitted and his surgery was undertaken uneventfully on 08/22/2017 and well tolerated. Postoperatively, the patient was placed on the medical/surgical floor. There, he received standard postoperative care after total hip replacement including early mobilization from bed with therapy utilizing a walker, IV pain medication and oral medication as needed, IV antibiotics and DVT prophylaxis with aspirin. On 08/25/2017, the patient was tolerating his recovery well and not having any identified complications and he was mobilized with therapy. It was recommended that he be transferred to a nursing home facility for further rehabilitation and care and these plans were placed and the [facility] The patient's discharge medications included a resumption of his usual medications, as well as use of a bowel program, pain medication, and aspirin for DVT prophylaxis. The patient's planned follow up with me was to be within 1 week. TD: 08/29/2017 08:28
== END 2017-08-25 14:10 | DRG 470 ==
LOC: MS3 09:03
PROVIDERS: ADMIT Orthopaedic Surgery; ATTEND Orthopaedic Surgery
PROC: 0SRB03Z Replacement of Left Hip Joint with Ceramic Synthetic Substitute, Open Approach (ICD-10-PCS; principal; 2017-08-22 10:00)
DX: M16.12 Unilateral primary osteoarthritis, left hip (principal); J44.9 Chronic obstructive pulmonary disease, unspecified; G47.33 Obstructive sleep apnea (adult) (pediatric); I10 Essential (primary) hypertension; E78.5 Hyperlipidemia, unspecified; E03.9 Hypothyroidism, unspecified; F03.90 Unspecified dementia, unspecified severity, without behavioral disturbance, psychotic disturbance, mood disturbance, and anxiety; F41.9 Anxiety disorder, unspecified; F32.9 Major depressive disorder, single episode, unspecified; H54.7 Unspecified visual loss; L40.9 Psoriasis, unspecified; Z87.891 Personal history of nicotine dependence; Z90.5 Acquired absence of kidney; Z92.3 Personal history of irradiation; Z85.46 Personal history of malignant neoplasm of prostate; Z79.899 Other long term (current) drug therapy
CPT/HCPCS: 36415; 80048; 85014; 85018; 85025; 87070; 87205

== ENCOUNTER 2017-08-26 08:00 | Outpatient (CLI) | payer MEDICARE, OTHER ==
[2017-08-26 22:56] LABS: BASOPHILS % (AUTO) 0.4 %; EOSINOPHILS % (AUTO) 0.6 %; HGB - HEMOGLOBIN 8.1 g/dL (14.0-18.0); LYMPHOCYTES % (AUTO) 7.4 %; MEAN CORPUSCULAR HEMOGLOBIN 33.5 pg (27.0-31.0); MEAN CORPUSCULAR HGB CONC 33.4 g/dL (32.0-36.0); MEAN CORPUSCULAR VOLUME 100.4 fL (80.0-94.0); MEAN PLATELET VOLUME 9.3 fL (7.4-11.4); MONOCYTES % (AUTO) 10.1 %; NEUTROPHILS % (AUTO) 81.5 %; PLT - PLATELET COUNT 178 10^3/uL (130-450); RED BLOOD COUNT 2.42 10^6/uL (4.70-6.10); RED CELL DISTRIBUTION WIDTH 13.9 % (12.0-15.0); WHITE BLOOD COUNT 9.8 x10^3/uL (4.8-10.8)
[2017-08-26 23:03] LABS: ABNORMAL LYMPHS % (MANUAL) 0 %
[2017-08-26 23:14] LABS: BAND NEUTROPHILS % (MANUAL) 2 %; LYMPHOCYTES # (MANUAL) 0.7 10^3/uL (1.5-3.5); LYMPHOCYTES % (MANUAL) 7 %; METAMYELOCYTES % (MANUAL) 2 %; MONOCYTES # (MANUAL) 1.1 10^3/uL (0.0-1.0); NEUTROPHILS # (MANUAL) 7.8 10^3/uL (1.5-6.6); NEUTROPHILS % (MANUAL) 78 %
[2017-08-26 23:15] LABS: DIFFERENTIAL COMMENT MANUAL DIFFERENTIAL; PLATELET ESTIMATE, MANUAL NORMAL (130-450,000) (NORMAL); PLATELET MORPHOLOGY NORMAL APPEARANCE (NORMAL); RBC MORPHOLOGY (MULTIPLE) 1+ POLYCHROMASIA (NORMAL)
== END 2017-08-26 08:01 | disposition home or self-care (01) ==
LOC: LAB.R 08:00
DX: Z13.0 Encounter for screening for diseases of the blood and blood-forming organs and certain disorders involving the immune mechanism (principal); E78.5 Hyperlipidemia, unspecified
CPT/HCPCS: 85025

== ENCOUNTER 2017-09-13 15:00 | Outpatient (CLI) | payer MEDICARE, OTHER | END 2017-09-13 15:01 | disposition home or self-care (01) | LOC: LAB.WCP 15:00 | PROVIDERS: ATTEND Family Medicine | DX: R39.15 Urgency of urination (principal) | CPT/HCPCS: 87086 ==

== ENCOUNTER 2017-09-19 12:07 | Outpatient (CLI) | payer MEDICARE, OTHER ==
[2017-09-19 19:07] LABS: BASOPHILS # (AUTO) 0.1 10^3/uL (0.0-0.1); BASOPHILS % (AUTO) 0.7 %; EOSINOPHILS # (AUTO) 0.4 10^3/uL (0.0-0.7); EOSINOPHILS % (AUTO) 4.8 %; HGB - HEMOGLOBIN 8.6 g/dL (14.0-18.0); LYMPHOCYTES # (AUTO) 0.7 10^3/uL (1.5-3.5); LYMPHOCYTES % (AUTO) 9.1 %; MEAN CORPUSCULAR HEMOGLOBIN 32.1 pg (27.0-31.0); MEAN CORPUSCULAR VOLUME 100.3 fL (80.0-94.0); MEAN PLATELET VOLUME 9.2 fL (7.4-11.4); MONOCYTES # (AUTO) 0.9 10^3/uL (0.0-1.0); NEUTROPHILS # (AUTO) 5.6 10^3/uL (1.5-6.6); NEUTROPHILS % (AUTO) 73.4 %; PLT - PLATELET COUNT 211 10^3/uL (130-450); RED BLOOD COUNT 2.67 10^6/uL (4.70-6.10); RED CELL DISTRIBUTION WIDTH 15.3 % (12.0-15.0); WHITE BLOOD COUNT 7.6 x10^3/uL (4.8-10.8)
[2017-09-19 19:15] LABS: CALCIUM 8.8 mg/dL (8.5-10.3); CREATININE 1.8 mg/dL (0.6-1.2)
== END 2017-09-19 12:08 | disposition home or self-care (01) ==
LOC: LAB.WCP 12:07
PROVIDERS: ATTEND Family Medicine
DX: I10 Essential (primary) hypertension (principal); E53.8 Deficiency of other specified B group vitamins; D63.8 Anemia in other chronic diseases classified elsewhere
CPT/HCPCS: 36415; 80048; 82607; 85025

== ENCOUNTER 2017-10-17 08:00 | Outpatient (CLI) | payer MEDICARE, OTHER | END 2017-10-17 08:01 | disposition home or self-care (01) | LOC: LAB.WCP 08:00 | PROVIDERS: ATTEND Urology | DX: Z85.46 Personal history of malignant neoplasm of prostate (principal) | CPT/HCPCS: 36415; 84153 ==

== ENCOUNTER 2017-11-22 08:00 | Outpatient (CLI) | payer MEDICARE, OTHER ==
[2017-11-22 12:51] LABS: BASOPHILS # (AUTO) 0.1 10^3/uL (0.0-0.1); BASOPHILS % (AUTO) 0.7 %; EOSINOPHILS # (AUTO) 0.3 10^3/uL (0.0-0.7); EOSINOPHILS % (AUTO) 3.3 %; HGB - HEMOGLOBIN 10.7 g/dL (14.0-18.0); LYMPHOCYTES % (AUTO) 12.8 %; MEAN CORPUSCULAR HEMOGLOBIN 32.2 pg (27.0-31.0); MEAN CORPUSCULAR HGB CONC 33.3 g/dL (32.0-36.0); MEAN CORPUSCULAR VOLUME 96.7 fL (80.0-94.0); MONOCYTES # (AUTO) 0.9 10^3/uL (0.0-1.0); MONOCYTES % (AUTO) 11.6 %; NEUTROPHILS # (AUTO) 5.6 10^3/uL (1.5-6.6); NEUTROPHILS % (AUTO) 71.6 %; PLT - PLATELET COUNT 143 10^3/uL (130-450); RED BLOOD COUNT 3.31 10^6/uL (4.70-6.10); RED CELL DISTRIBUTION WIDTH 16.4 % (12.0-15.0); WHITE BLOOD COUNT 7.8 x10^3/uL (4.8-10.8)
[2017-11-22 13:17] LABS: FERRITIN 50.3 ng/mL (23.9-336.2)
[2017-11-22 13:20] LABS: ALBUMIN 4.2 g/dL (3.2-5.5); ALBUMIN/GLOBULIN RATIO 1.5 (1.0-2.2); BILIRUBIN,TOTAL 0.6 mg/dL (0.2-1.0); CALCIUM 9.3 mg/dL (8.5-10.3)
== END 2017-11-22 08:01 | disposition home or self-care (01) ==
LOC: LAB.WCP 08:00
PROVIDERS: ATTEND Family Medicine
DX: N18.3 Chronic kidney disease, stage 3 (moderate) (principal); D63.8 Anemia in other chronic diseases classified elsewhere; Z85.528 Personal history of other malignant neoplasm of kidney
CPT/HCPCS: 36415; 80053; 82607; 82668; 82728; 83540; 84466; 85025

== ENCOUNTER 2017-12-06 08:00 | Outpatient (CLI) | payer MEDICARE, OTHER | END 2017-12-06 08:01 | disposition home or self-care (01) | LOC: LAB.WCP 08:00 | PROVIDERS: ATTEND Urology | DX: Z85.528 Personal history of other malignant neoplasm of kidney (principal) | CPT/HCPCS: 36415; 82565; 84520 ==

== ENCOUNTER 2017-12-11 12:01 | Outpatient (CLI) | payer MEDICARE, OTHER ==
[2017-12-11 18:53] LABS: BASOPHILS % (AUTO) 0.5 %; EOSINOPHILS # (AUTO) 0.2 10^3/uL (0.0-0.7); EOSINOPHILS % (AUTO) 3.4 %; HGB - HEMOGLOBIN 10.6 g/dL (14.0-18.0); LYMPHOCYTES # (AUTO) 0.7 10^3/uL (1.5-3.5); LYMPHOCYTES % (AUTO) 12.7 %; MEAN CORPUSCULAR HEMOGLOBIN 31.9 pg (27.0-31.0); MEAN CORPUSCULAR HGB CONC 32.9 g/dL (32.0-36.0); MEAN PLATELET VOLUME 10.2 fL (7.4-11.4); MONOCYTES # (AUTO) 0.7 10^3/uL (0.0-1.0); MONOCYTES % (AUTO) 12.6 %; NEUTROPHILS # (AUTO) 4.1 10^3/uL (1.5-6.6); NEUTROPHILS % (AUTO) 70.8 %; PLT - PLATELET COUNT 118 10^3/uL (130-450); RED BLOOD COUNT 3.31 10^6/uL (4.70-6.10); RED CELL DISTRIBUTION WIDTH 16.6 % (12.0-15.0); WHITE BLOOD COUNT 5.8 x10^3/uL (4.8-10.8)
[2017-12-11 19:29] LABS: ALBUMIN 4.1 g/dL (3.2-5.5); ALBUMIN/GLOBULIN RATIO 1.6 (1.0-2.2); CALCIUM 9.5 mg/dL (8.5-10.3); CREATININE 1.9 mg/dL (0.6-1.2); TOTAL PROTEIN 6.7 g/dL (6.7-8.2)
[2017-12-11 19:33] LABS: CREATININE,URINE 17.2 mg/dL; PROTEIN/CREATININE RATIO,URINE 1.1 (<=0.2)
== END 2017-12-11 12:02 | disposition home or self-care (01) ==
LOC: LAB.WCP 12:01
PROVIDERS: ATTEND Family Medicine
DX: K81.9 Cholecystitis, unspecified (principal); N05.9 Unspecified nephritic syndrome with unspecified morphologic changes; D70.9 Neutropenia, unspecified; D63.1 Anemia in chronic kidney disease; R80.9 Proteinuria, unspecified; E83.30 Disorder of phosphorus metabolism, unspecified; N25.81 Secondary hyperparathyroidism of renal origin
CPT/HCPCS: 36415; 80053; 82570; 83970; 84100; 84156; 85025

== ENCOUNTER 2017-12-22 11:23 | Outpatient (CLI) | payer MEDICARE, OTHER | END 2017-12-22 11:24 | disposition home or self-care (01) | LOC: DI 11:23 | PROVIDERS: ATTEND Family Medicine | DX: K81.9 Cholecystitis, unspecified (principal) ==

== ENCOUNTER 2017-12-26 20:51 | Outpatient (CLI) | payer MEDICARE, OTHER ==
--- NOTE | 2017-12-27 12:53 | Ultrasound Report ---
RIGHT UPPER QUADRANT ULTRASOUND: 12/26/2017 CLINICAL INDICATION: Cholecystitis. TECHNIQUE: Real-time scanning was performed with chemical sales representative static images obtained. FINDINGS: The liver measures 13.8 cm. No focal parenchymal lesion or intrahepatic biliary dilatation is present. The common bile duct measures 4 mm. The gallbladder is normal. The right kidney measures 10.4 cm, and demonstrates a 1.3 cm parapelvic cyst. No free fluid is present. IMPRESSION: NORMAL RIGHT UPPER QUADRANT ULTRASOUND. TD: 12/27/2017 12:08
== END 2017-12-26 20:52 | disposition home or self-care (01) ==
LOC: DI 20:51
PROVIDERS: ATTEND Family Medicine
DX: K81.9 Cholecystitis, unspecified (principal)
CPT/HCPCS: 76705

== ENCOUNTER 2018-02-12 08:00 | Outpatient (CLI) | payer MEDICARE, OTHER ==
[2018-02-12 18:59] LABS: HGB - HEMOGLOBIN 10.4 g/dL (14.0-18.0); MEAN CORPUSCULAR HEMOGLOBIN 33.6 pg (27.0-31.0); MEAN CORPUSCULAR HGB CONC 33.8 g/dL (32.0-36.0); MEAN CORPUSCULAR VOLUME 99.5 fL (80.0-94.0); MEAN PLATELET VOLUME 10.6 fL (7.4-11.4); RED BLOOD COUNT 3.09 10^6/uL (4.70-6.10); WHITE BLOOD COUNT 5.7 x10^3/uL (4.8-10.8)
[2018-02-12 19:22] LABS: % IRON SATURATION 18 % (20-50); IRON 51 ug/dL (45-182); TOTAL IRON BINDING CAPACITY 281 ug/dL (250-450); TRANSFERRIN 201 mg/dL (180-329)
[2018-02-12 19:27] LABS: FERRITIN 58.1 ng/mL (23.9-336.2)
[2018-02-12 20:27] LABS: FOLATE > 49.60 ng/mL (5.90 - >24.8)
== END 2018-02-12 08:01 | disposition home or self-care (01) ==
LOC: LAB.WCP 08:00
PROVIDERS: ATTEND Internal Medicine Nephrology
DX: D70.9 Neutropenia, unspecified (principal); D63.1 Anemia in chronic kidney disease; D50.0 Iron deficiency anemia secondary to blood loss (chronic); D64.9 Anemia, unspecified
CPT/HCPCS: 36415; 82607; 82728; 82746; 83540; 84466; 85027

== ENCOUNTER 2018-03-06 11:35 | Outpatient (CLI) | payer MEDICARE, OTHER | END 2018-03-06 11:36 | disposition home or self-care (01) | LOC: LAB.WCP 11:35 | PROVIDERS: ATTEND Family Medicine | DX: E53.8 Deficiency of other specified B group vitamins (principal) | CPT/HCPCS: 36415; 82607 ==

== ENCOUNTER 2018-04-06 16:48 | Outpatient (CLI) | payer MEDICARE, OTHER ==
--- NOTE | 2018-04-07 16:32 | Ultrasound Report ---
Reason: TESTICULAR PAIN,UNSPECIFIED Procedure Date: 04/06/2018 Accession Number: [id number] / [id number] Procedure: US - Testicle w/Doppler CPT Code: FULL RESULT: EXAM: SCROTAL ULTRASOUND EXAM DATE: 04/06/2018 05:32 PM. CLINICAL HISTORY: TESTICULAR PAIN,UNSPECIFIED. COMPARISON: None. TECHNIQUE: Real-time scanning was performed with static images obtained. Both color-flow and Doppler spectral analysis were utilized. FINDINGS: Right: Testis: 3.1 x 2.3 x 1.8 cm. Normal size and echotexture. No mass, calcification, or abnormal blood flow. Epididymis: 2.9 x 0.9 x 0.7 cm. Normal size and echotexture. No mass or abnormal blood flow. Hydrocele: None. Varicocele: None. Left: Testis: 3.7 x 2.9 x 2.1 cm. Normal size and echotexture. No mass, calcification, or abnormal blood flow. Epididymis: 2.9 x 0.6 x 0.6 cm. Normal size and echotexture. No mass or abnormal blood flow. Hydrocele: None. Varicocele: None. IMPRESSION: Normal scrotal ultrasound. RADIA
== END 2018-04-06 16:49 | disposition home or self-care (01) ==
LOC: DI 16:48
PROVIDERS: ATTEND Family Medicine
DX: N50.819 Testicular pain, unspecified (principal)
CPT/HCPCS: 76870; 93975

== ENCOUNTER 2018-05-04 11:23 | Outpatient (CLI) | payer MEDICARE, OTHER ==
[2018-05-04 19:28] LABS: BASOPHILS % (AUTO) 0.6 %; EOSINOPHILS # (AUTO) 0.1 10^3/uL (0.0-0.7); EOSINOPHILS % (AUTO) 2.7 %; HGB - HEMOGLOBIN 9.3 g/dL (14.0-18.0); LYMPHOCYTES # (AUTO) 0.5 10^3/uL (1.5-3.5); MEAN CORPUSCULAR HEMOGLOBIN 34.3 pg (27.0-31.0); MEAN CORPUSCULAR HGB CONC 33.5 g/dL (32.0-36.0); MEAN CORPUSCULAR VOLUME 102.4 fL (80.0-94.0); MEAN PLATELET VOLUME 11.5 fL (7.4-11.4); MONOCYTES # (AUTO) 0.8 10^3/uL (0.0-1.0); NEUTROPHILS # (AUTO) 3.8 10^3/uL (1.5-6.6); NEUTROPHILS % (AUTO) 71.7 %; PLT - PLATELET COUNT 75 10^3/uL (130-450); RED BLOOD COUNT 2.72 10^6/uL (4.70-6.10); RED CELL DISTRIBUTION WIDTH 16.8 % (12.0-15.0); WHITE BLOOD COUNT 5.3 x10^3/uL (4.8-10.8)
[2018-05-04 19:30] LABS: CALCIUM 9.2 mg/dL (8.5-10.3); CREATININE 2.7 mg/dL (0.6-1.2)
== END 2018-05-04 11:24 | disposition home or self-care (01) ==
LOC: LAB.WCP 11:23
PROVIDERS: ATTEND Internal Medicine Nephrology
DX: N05.9 Unspecified nephritic syndrome with unspecified morphologic changes (principal); I50.32 Chronic diastolic (congestive) heart failure; D70.9 Neutropenia, unspecified; D63.1 Anemia in chronic kidney disease
CPT/HCPCS: 36415; 80048; 83880; 85025

== ENCOUNTER 2018-05-28 15:30 | Emergency (ER) | payer MEDICARE, OTHER ==
[2018-05-28 17:50] LABS: BASOPHILS % (AUTO) 0.8 %; EOSINOPHILS # (AUTO) 0.2 10^3/uL (0.0-0.7); EOSINOPHILS % (AUTO) 2.8 %; HGB - HEMOGLOBIN 9.8 g/dL (14.0-18.0); LYMPHOCYTES # (AUTO) 0.5 10^3/uL (1.5-3.5); LYMPHOCYTES % (AUTO) 8.8 %; MEAN CORPUSCULAR HEMOGLOBIN 34.5 pg (27.0-31.0); MEAN CORPUSCULAR HGB CONC 34.1 g/dL (32.0-36.0); MEAN CORPUSCULAR VOLUME 101.3 fL (80.0-94.0); MONOCYTES # (AUTO) 0.8 10^3/uL (0.0-1.0); MONOCYTES % (AUTO) 13.7 %; NEUTROPHILS # (AUTO) 4.4 10^3/uL (1.5-6.6); NEUTROPHILS % (AUTO) 73.9 %; PLT - PLATELET COUNT 92 10^3/uL (130-450); RED BLOOD COUNT 2.84 10^6/uL (4.70-6.10); RED CELL DISTRIBUTION WIDTH 16.6 % (12.0-15.0)
[2018-05-28 18:00] LABS: ALBUMIN/GLOBULIN RATIO 1.3 (1.0-2.2); CALCIUM 9.8 mg/dL (8.5-10.3); CREATININE 2.6 mg/dL (0.6-1.2); INR 1.1 (0.8-1.2); PT - PROTHROMBIN TIME 12.9 secs (9.9-12.6)
--- NOTE | 2018-05-28 18:02 | ED Physician Documentation ---
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 He presents with fluid overload that has been progressive. His main complaint is abdominal swelling and scrotal swelling. He had a scrotal ultrasound last month for same which was negative for testicular pathology. He has been on and off of torsemide, he restarted it but it has not helped much. His weight has been stable.) Review of Systems Constitutional: denies: Fever, Chills Respiratory: denies: Dyspnea, Cough GI: reports: Abdominal Swelling. denies: Abdominal Pain, Nausea, Vomiting PD PAST MEDICAL HISTORY - Present Medications Home Medications: Ambulatory Orders Medication Instructions Recorded Confirmed Aspirin EC [Ecotrin] 325 mg PO DAILY 30 Days #30 tablet 08/25/17 Atorvastatin [Lipitor] 10 mg PO DAILY #30 08/25/17 08/22/17 Doxazosin Mesylate 4 mg PO BID #30 08/25/17 08/22/17 HYDROcod/ACETAM 5/325 [Freedom 5/325] 1 tab PO Q6H PRN #30 tablet 08/25/17 Levothyroxine [Synthroid] 25 mcg PO QDAC #30 08/25/17 08/22/17 Ropinirole HCl [Requip] 2 mg PO DAILY #30 08/25/17 08/22/17 amLODIPine [Norvasc] 5 mg PO QPM #30 08/25/17 08/22/17 amLODIPine [Norvasc] 5 mg PO QPM #30 tablet 08/25/17 hydrOXYzine pamoate [Hydroxyzine 25 mg ORAL QPM #30 08/25/17 08/22/17 Pamoate] Clobetasol 0.05% Oint [Temovate 05/28/18 0.05% Oint] Torsemide 25 mg PO DAILY 05/28/18 05/28/18 - Allergies Allergies/Adverse Reactions: Allergies Allergy/AdvReac Type Severity Reaction Status Date / Time No Known Drug Allergies Allergy Verified 05/28/18 16:00 PD ED PE NORMAL - Vitals Vital signs reviewed: Yes - General General: Alert and oriented X 3, No acute distress - Neck Neck: Other (+++JVD) - Cardiac Cardiac: RRR, No murmur - Respiratory Respiratory: No respiratory distress, Clear bilaterally - Abdomen Abdomen: Non tender, Other (Somewhat distended with positive fluid wave) - Male Male : Other (The scrotum and the glands are edematous, but nontender there is no evidence of infection.) - Extremities Extremities: Other (4+ pedal edema) - Neuro Neuro: Alert and oriented X 3, Normal speech Results - Vitals Vitals: Vital Signs - 24 hr 05/28/18 15:55 Temperature 36.3 C L Heart Rate 61 Respiratory 18 Rate Blood Pressure 147/69 H O2 Saturation 97 Oxygen O2 Source Room air - Labs Labs: Laboratory Tests 05/28/18 05/28/18 05/28/18 17:40 17:40 17:40 WBC 6.0 RBC 2.84 L Hgb 9.8 L Hct 28.7 L MCV 101.3 H MCH 34.5 H MCHC 34.1 RDW 16.6 H Plt Count 92 L MPV 10.0 Neut # (Auto) 4.4 Lymph # (Auto) 0.5 L Elmore # (Auto) 0.8 Eos # (Auto) 0.2 Baso # (Auto) 0.0 Absolute Nucleated RBC 0.00 Nucleated RBC % 0.0 PT 12.9 H INR 1.1 Sodium 137 Potassium 3.9 Chloride 103 Carbon Dioxide 24 Anion Gap 10.0 BUN 34 H Creatinine 2.6 H Estimated GFR (MDRD) 23 L Glucose 101 H Calcium 9.8 Total Bilirubin 1.0 AST 27 ALT 21 Alkaline Phosphatase 177 H B-Natriuretic Peptide Total Protein 7.0 Albumin 4.0 Globulin 3.0 Albumin/Globulin Ratio 1.3 Lipase 24 05/28/18 17:40 WBC RBC Hgb Hct MCV MCH MCHC RDW Plt Count MPV Neut # (Auto) Lymph # (Auto) Elmore # (Auto) Eos # (Auto) Baso # (Auto) Absolute Nucleated RBC Nucleated RBC % PT INR Sodium Potassium Chloride Carbon Dioxide Anion Gap BUN Creatinine Estimated GFR (MDRD) Glucose Calcium Total Bilirubin AST ALT Alkaline Phosphatase B-Natriuretic Peptide 1569 H Total Protein Albumin Globulin Albumin/Globulin Ratio Lipase PD MEDICAL DECISION MAKING - ED course ED course: 88-year-old gentleman with history of nephrectomy and chronic renal insufficiency presents with significant fluid overload After labs case was reviewed with the lean manufacturing specialist on-call for Dr. Ghosh, Dr. Gillespie who recommended doubling the torsemide to 40 mg Once a day for the next few days and then following up with Dr. Ghosh. Departure - Departure Disposition: Home, Self Care Clinical Impression: Renal insufficiency Fluid overload Qualifiers: Hypervolemia type: unspecified Qualified Code(s): E87.70 - Fluid overload, unspecified Condition: Good Record reviewed to determine appropriate education?: Yes Comments: Double the torsemide to 40 mg once a day, that is 2 tabs once a day through Monday or . Monitor your weight daily. Call Dr. Robb's office, I think he should follow-up before next Monday as scheduled. When you see the feed in worker later this week to discuss echocardiography to check for a leaky valve or poorly functioning heart which could also contribute to the fluid overload.
[2018-05-28] MEDS ORDERED: TORSEMIDE 20 MG TABLET PO STA (18:34)
[2018-05-28 18:58] VITALS: BP 169/77
== END 2018-05-28 18:59 | disposition home or self-care (01) ==
LOC: ED 15:30
DX: N28.9 Disorder of kidney and ureter, unspecified (principal); E87.70 Fluid overload, unspecified; Z90.5 Acquired absence of kidney
CPT/HCPCS: 36415; 80053; 83690; 83880; 85025; 85610; 99283; A9270

== ENCOUNTER 2018-06-06 09:08 | Outpatient (CLI) | payer MEDICARE, OTHER | END 2018-06-06 09:09 | disposition home or self-care (01) | LOC: SC 09:08 | PROVIDERS: ATTEND Nurse Practitioner Family | DX: G47.39 Other sleep apnea (principal) | CPT/HCPCS: 99215; G0463; 99212 ==

== ENCOUNTER 2018-06-18 08:00 | Outpatient (CLI) | payer MEDICARE, OTHER ==
[2018-06-18 16:37] LABS: BASOPHILS % (AUTO) 0.7 %; EOSINOPHILS # (AUTO) 0.2 10^3/uL (0.0-0.7); EOSINOPHILS % (AUTO) 2.9 %; HGB - HEMOGLOBIN 10.2 g/dL (14.0-18.0); LYMPHOCYTES # (AUTO) 0.4 10^3/uL (1.5-3.5); LYMPHOCYTES % (AUTO) 7.8 %; MEAN CORPUSCULAR HEMOGLOBIN 34.7 pg (27.0-31.0); MEAN CORPUSCULAR HGB CONC 33.5 g/dL (32.0-36.0); MEAN CORPUSCULAR VOLUME 103.5 fL (80.0-94.0); MEAN PLATELET VOLUME 11.7 fL (7.4-11.4); MONOCYTES # (AUTO) 0.9 10^3/uL (0.0-1.0); MONOCYTES % (AUTO) 15.4 %; NEUTROPHILS # (AUTO) 4.2 10^3/uL (1.5-6.6); NEUTROPHILS % (AUTO) 73.2 %; PLT - PLATELET COUNT 75 10^3/uL (130-450); RED BLOOD COUNT 2.94 10^6/uL (4.70-6.10); RED CELL DISTRIBUTION WIDTH 16.5 % (12.0-15.0); WHITE BLOOD COUNT 5.7 x10^3/uL (4.8-10.8)
[2018-06-18 17:05] LABS: CALCIUM 9.1 mg/dL (8.5-10.3); CREATININE 1.7 mg/dL (0.6-1.2)
== END 2018-06-18 08:01 | disposition home or self-care (01) ==
LOC: LAB.WCP 08:00
PROVIDERS: ATTEND Internal Medicine Nephrology
DX: N05.9 Unspecified nephritic syndrome with unspecified morphologic changes (principal); I50.32 Chronic diastolic (congestive) heart failure; D70.9 Neutropenia, unspecified; D63.1 Anemia in chronic kidney disease
CPT/HCPCS: 36415; 80048; 83880; 85025

== ENCOUNTER 2018-07-05 12:49 | Outpatient (CLI) | payer MEDICARE, OTHER | END 2018-07-05 12:50 | disposition home or self-care (01) | LOC: NS 12:49 | PROVIDERS: ATTEND Family Medicine | DX: Z71.3 Dietary counseling and surveillance (principal); N18.4 Chronic kidney disease, stage 4 (severe) | CPT/HCPCS: 97802 ==

== ENCOUNTER 2018-07-09 13:13 | Outpatient (CLI) | payer MEDICARE, OTHER ==
[2018-07-09 19:09] LABS: HGB - HEMOGLOBIN 9.9 g/dL (14.0-18.0); MEAN CORPUSCULAR HEMOGLOBIN 34.9 pg (27.0-31.0); MEAN CORPUSCULAR HGB CONC 33.4 g/dL (32.0-36.0); MEAN CORPUSCULAR VOLUME 104.5 fL (80.0-94.0); MEAN PLATELET VOLUME 11.7 fL (7.4-11.4); RED BLOOD COUNT 2.84 10^6/uL (4.70-6.10); RED CELL DISTRIBUTION WIDTH 15.7 % (12.0-15.0); WHITE BLOOD COUNT 5.5 x10^3/uL (4.8-10.8)
[2018-07-09 19:25] LABS: CALCIUM 8.7 mg/dL (8.5-10.3); CREATININE 3.1 mg/dL (0.6-1.2)
== END 2018-07-09 23:59 | disposition home or self-care (01) ==
LOC: LAB.WCP 13:13
PROVIDERS: ATTEND Internal Medicine Nephrology
DX: N05.9 Unspecified nephritic syndrome with unspecified morphologic changes (principal); I50.32 Chronic diastolic (congestive) heart failure; D70.9 Neutropenia, unspecified; D63.1 Anemia in chronic kidney disease
CPT/HCPCS: 36415; 80048; 83880; 85027

== ENCOUNTER 2018-07-10 16:52 | Outpatient (CLI) | payer MEDICARE, OTHER ==
--- NOTE | 2018-07-11 10:51 | Ultrasound Report ---
Reason: LEG EDEMA, BILATERAL Procedure Date: 07/10/2018 Accession Number: [id number] / [id number] Procedure: US - Duplex Ext Veins Bilateral CPT Code: FULL RESULT: EXAM: BILATERAL LOWER EXTREMITY VENOUS ULTRASOUND EXAM DATE: 07/10/2018 06:12 PM. CLINICAL HISTORY: Leg edema, bilateral. COMPARISON: None. TECHNIQUE: Real-time sonographic vascular imaging was performed by the social scientist through the lower extremities utilizing both color-flow and Doppler spectral analysis. Multiple veterans employment representative static images were saved for review. FINDINGS: Right: Common Femoral Vein (CFV): Normal. CFV-GSV Junction: Normal. Profunda Femoral Vein (PFV): Normal. Femoral Vein (FV) Prox: Normal. Femoral Vein (FV) Mid: Normal. Femoral Vein (FV) Dist: Normal. Popliteal Vein: Normal. Posterior Tibial Veins: Normal. Peroneal Veins: Normal. Left: Common Femoral Vein (CFV): Normal. CFV-GSV Junction: Normal. Profunda Femoral Vein (PFV): Normal. Femoral Vein (FV) Prox: Normal. Femoral Vein (FV) Mid: Normal. Femoral Vein (FV) Dist: Normal. Popliteal Vein: Normal. Posterior Tibial Veins: Normal. Peroneal Veins: Normal. Other: A mild amount of superficial subcutaneous soft tissue edema is noted. IMPRESSION: No evidence for deep venous thrombosis bilaterally. [facility]
== END 2018-07-10 16:53 | disposition home or self-care (01) ==
LOC: DI 16:52
PROVIDERS: ATTEND Family Medicine
DX: R60.0 Localized edema (principal)
CPT/HCPCS: 93970

== ENCOUNTER 2018-07-12 09:56 | Outpatient (CLI) | payer MEDICARE, OTHER | END 2018-07-12 09:57 | disposition home or self-care (01) | LOC: SC 09:56 | PROVIDERS: ATTEND Nurse Practitioner Family | DX: G47.39 Other sleep apnea (principal); G25.81 Restless legs syndrome | CPT/HCPCS: 99214; G0463; 99212 ==

== ENCOUNTER 2018-07-13 11:15 | Outpatient (CLI) | payer MEDICARE, OTHER ==
[2018-07-13 12:03] LABS: % IRON SATURATION 21 % (20-50); IRON 64 ug/dL (45-182); TOTAL IRON BINDING CAPACITY 305 ug/dL (250-450); TRANSFERRIN 218 mg/dL (180-329)
[2018-07-13 12:12] LABS: FERRITIN 145.7 ng/mL (23.9-336.2)
== END 2018-07-13 11:16 | disposition home or self-care (01) ==
LOC: LAB 11:15
PROVIDERS: ATTEND Internal Medicine Nephrology
DX: D50.0 Iron deficiency anemia secondary to blood loss (chronic) (principal); D64.9 Anemia, unspecified
CPT/HCPCS: 36415; 82607; 82728; 83540; 84466

== ENCOUNTER 2018-08-16 12:12 | Outpatient (CLI) | payer MEDICARE, OTHER ==
[2018-08-16 13:04] LABS: BASOPHILS % (AUTO) 0.7 %; EOSINOPHILS # (AUTO) 0.2 10^3/uL (0.0-0.7); HGB - HEMOGLOBIN 10.7 g/dL (14.0-18.0); LYMPHOCYTES # (AUTO) 0.4 10^3/uL (1.5-3.5); LYMPHOCYTES % (AUTO) 5.7 %; MEAN CORPUSCULAR HEMOGLOBIN 35.7 pg (27.0-31.0); MEAN CORPUSCULAR HGB CONC 34.6 g/dL (32.0-36.0); MEAN PLATELET VOLUME 9.8 fL (7.4-11.4); MONOCYTES # (AUTO) 0.7 10^3/uL (0.0-1.0); MONOCYTES % (AUTO) 11.2 %; NEUTROPHILS # (AUTO) 5.1 10^3/uL (1.5-6.6); NEUTROPHILS % (AUTO) 79.4 %; PLT - PLATELET COUNT 77 10^3/uL (130-450); RED BLOOD COUNT 2.99 10^6/uL (4.70-6.10); RED CELL DISTRIBUTION WIDTH 15.8 % (12.0-15.0); WHITE BLOOD COUNT 6.4 x10^3/uL (4.8-10.8)
[2018-08-16 13:20] LABS: ALBUMIN 3.6 g/dL (3.2-5.5); ALBUMIN/GLOBULIN RATIO 1.3 (1.0-2.2); BILIRUBIN,TOTAL 1.6 mg/dL (0.2-1.0); CALCIUM 9.2 mg/dL (8.5-10.3); CREATININE 2.4 mg/dL (0.6-1.2); TOTAL PROTEIN 6.3 g/dL (6.7-8.2)
[2018-08-16 13:52] LABS: PSA TOTAL 0.15 ng/mL (0.000-2.000)
== END 2018-08-16 12:13 | disposition home or self-care (01) ==
LOC: LAB 12:12
PROVIDERS: ATTEND Internal Medicine Hematology & Oncology
DX: R22.42 Localized swelling, mass and lump, left lower limb (principal); D69.6 Thrombocytopenia, unspecified; C61 Malignant neoplasm of prostate; D64.9 Anemia, unspecified
CPT/HCPCS: 36415; 80053; 81599; 82784; 83615; 83883; 84153; 84155; 84165; 84403; 85025

== ENCOUNTER 2018-08-27 09:56 | Outpatient (CLI) | payer MEDICARE, OTHER | END 2018-08-27 09:57 | disposition home or self-care (01) | LOC: SC 09:56 | PROVIDERS: ATTEND Nurse Practitioner Family | DX: G47.39 Other sleep apnea (principal); R32 Unspecified urinary incontinence | CPT/HCPCS: 99214; G0463; 99212 ==

== ENCOUNTER 2018-08-31 08:00 | Outpatient (CLI) | payer MEDICARE, OTHER ==
[2018-08-31 19:18] LABS: BASOPHILS % (AUTO) 0.4 %; EOSINOPHILS # (AUTO) 0.3 10^3/uL (0.0-0.7); EOSINOPHILS % (AUTO) 6.3 %; HGB - HEMOGLOBIN 10.6 g/dL (14.0-18.0); LYMPHOCYTES # (AUTO) 0.4 10^3/uL (1.5-3.5); LYMPHOCYTES % (AUTO) 6.9 %; MEAN CORPUSCULAR HEMOGLOBIN 35.3 pg (27.0-31.0); MEAN CORPUSCULAR HGB CONC 33.4 g/dL (32.0-36.0); MEAN CORPUSCULAR VOLUME 105.8 fL (80.0-94.0); MEAN PLATELET VOLUME 9.9 fL (7.4-11.4); MONOCYTES # (AUTO) 0.6 10^3/uL (0.0-1.0); MONOCYTES % (AUTO) 11.8 %; NEUTROPHILS % (AUTO) 74.6 %; PLT - PLATELET COUNT 87 10^3/uL (130-450); RED BLOOD COUNT 2.99 10^6/uL (4.70-6.10); RED CELL DISTRIBUTION WIDTH 15.6 % (12.0-15.0); WHITE BLOOD COUNT 5.4 x10^3/uL (4.8-10.8)
[2018-08-31 19:27] LABS: ALBUMIN 3.8 g/dL (3.2-5.5); ALBUMIN/GLOBULIN RATIO 1.4 (1.0-2.2); BILIRUBIN,TOTAL 1.1 mg/dL (0.2-1.0); CALCIUM 9.1 mg/dL (8.5-10.3); CREATININE 2.6 mg/dL (0.6-1.2); TOTAL PROTEIN 6.6 g/dL (6.7-8.2)
[2018-08-31 19:37] LABS: PSA TOTAL 0.134 ng/mL (0.000-2.000)
== END 2018-08-31 23:59 | disposition home or self-care (01) ==
LOC: LAB.WCP 08:00
PROVIDERS: ATTEND Internal Medicine Nephrology
DX: R22.42 Localized swelling, mass and lump, left lower limb (principal); D69.6 Thrombocytopenia, unspecified; D64.9 Anemia, unspecified
CPT/HCPCS: 36415; 80053; 83921; 84153; 84403; 85025

== ENCOUNTER 2018-10-02 09:06 | Outpatient (CLI) | payer MEDICARE, OTHER | END 2018-10-02 09:07 | disposition home or self-care (01) | LOC: SC 09:06 | PROVIDERS: ATTEND Nurse Practitioner Family | DX: G47.39 Other sleep apnea (principal) | CPT/HCPCS: 99214; G0463; 99212 ==

== ENCOUNTER 2018-11-07 09:05 | Outpatient (CLI) | payer MEDICARE, OTHER ==
[2018-11-07 12:25] LABS: BASOPHILS % (AUTO) 0.6 %; EOSINOPHILS # (AUTO) 0.3 10^3/uL (0.0-0.7); HGB - HEMOGLOBIN 10.8 g/dL (14.0-18.0); LYMPHOCYTES # (AUTO) 0.6 10^3/uL (1.5-3.5); LYMPHOCYTES % (AUTO) 10.9 %; MEAN CORPUSCULAR HEMOGLOBIN 34.7 pg (27.0-31.0); MEAN CORPUSCULAR HGB CONC 33.7 g/dL (32.0-36.0); MEAN CORPUSCULAR VOLUME 102.8 fL (80.0-94.0); MEAN PLATELET VOLUME 10.2 fL (7.4-11.4); MONOCYTES # (AUTO) 0.8 10^3/uL (0.0-1.0); NEUTROPHILS # (AUTO) 3.4 10^3/uL (1.5-6.6); NEUTROPHILS % (AUTO) 67.5 %; PLT - PLATELET COUNT 91 10^3/uL (130-450); RED BLOOD COUNT 3.12 10^6/uL (4.70-6.10); RED CELL DISTRIBUTION WIDTH 14.5 % (12.0-15.0); WHITE BLOOD COUNT 5.1 x10^3/uL (4.8-10.8)
[2018-11-07 13:15] LABS: CALCIUM 9.6 mg/dL (8.5-10.3); CREATININE 2.9 mg/dL (0.6-1.2)
== END 2018-11-07 23:59 | disposition home or self-care (01) ==
LOC: LAB.WCP 09:05
PROVIDERS: ATTEND Family Medicine
DX: N18.4 Chronic kidney disease, stage 4 (severe) (principal); E53.8 Deficiency of other specified B group vitamins
CPT/HCPCS: 36415; 80048; 82607; 85025

== ENCOUNTER 2018-11-14 08:00 | Outpatient (CLI) | payer MEDICARE, OTHER ==
[2018-11-14 12:35] LABS: BASOPHILS % (AUTO) 0.5 %; EOSINOPHILS # (AUTO) 0.3 10^3/uL (0.0-0.7); EOSINOPHILS % (AUTO) 5.6 %; HGB - HEMOGLOBIN 10.8 g/dL (14.0-18.0); LYMPHOCYTES # (AUTO) 0.7 10^3/uL (1.5-3.5); LYMPHOCYTES % (AUTO) 13.7 %; MEAN CORPUSCULAR HEMOGLOBIN 34.7 pg (27.0-31.0); MEAN CORPUSCULAR HGB CONC 33.9 g/dL (32.0-36.0); MEAN CORPUSCULAR VOLUME 102.2 fL (80.0-94.0); MEAN PLATELET VOLUME 10.2 fL (7.4-11.4); MONOCYTES # (AUTO) 0.7 10^3/uL (0.0-1.0); MONOCYTES % (AUTO) 14.3 %; NEUTROPHILS # (AUTO) 3.2 10^3/uL (1.5-6.6); NEUTROPHILS % (AUTO) 65.9 %; PLT - PLATELET COUNT 100 10^3/uL (130-450); RED BLOOD COUNT 3.12 10^6/uL (4.70-6.10); RED CELL DISTRIBUTION WIDTH 14.2 % (12.0-15.0); WHITE BLOOD COUNT 4.9 x10^3/uL (4.8-10.8)
[2018-11-14 12:37] LABS: CALCIUM 9.8 mg/dL (8.5-10.3); PHOSPHORUS 3.6 mg/dL (2.5-4.6)
== END 2018-11-14 08:01 | disposition home or self-care (01) ==
LOC: LAB.WCP 08:00
PROVIDERS: ATTEND Internal Medicine Nephrology
DX: N05.9 Unspecified nephritic syndrome with unspecified morphologic changes (principal); I50.32 Chronic diastolic (congestive) heart failure; D70.9 Neutropenia, unspecified; D63.1 Anemia in chronic kidney disease; E83.30 Disorder of phosphorus metabolism, unspecified; N25.81 Secondary hyperparathyroidism of renal origin
CPT/HCPCS: 36415; 80048; 83880; 83970; 84100; 85025

== ENCOUNTER 2019-02-21 08:45 | Outpatient (CLI) | payer MEDICARE, OTHER | END 2019-02-21 08:46 | disposition home or self-care (01) | LOC: SC 08:45 | PROVIDERS: ATTEND Nurse Practitioner Family | DX: G47.39 Other sleep apnea (principal) | CPT/HCPCS: 99214; G0463; 99212 ==

== ENCOUNTER 2019-03-01 | Outpatient (CLI) | payer MEDICARE, OTHER | END 2019-03-01 23:59 | disposition home or self-care (01) ==

== ENCOUNTER 2019-03-06 11:13 | Outpatient (CLI) | payer MEDICARE, OTHER | END 2019-03-06 23:59 | disposition home or self-care (01) | LOC: LAB.WCP 11:13 | PROVIDERS: ATTEND Family Medicine | DX: C76.0 Malignant neoplasm of head, face and neck (principal) | CPT/HCPCS: 87070; 87205 ==

== ENCOUNTER → 2019-04-15 | Outpatient (CLI) | payer MEDICARE, OTHER ==
[2019-04-15 18:25] LABS: BASOPHILS % (AUTO) 0.6 %; EOSINOPHILS # (AUTO) 0.1 10^3/uL (0.0-0.7); EOSINOPHILS % (AUTO) 1.7 %; HGB - HEMOGLOBIN 10.6 g/dL (14.0-18.0); LYMPHOCYTES # (AUTO) 0.6 10^3/uL (1.5-3.5); LYMPHOCYTES % (AUTO) 8.8 %; MEAN CORPUSCULAR HEMOGLOBIN 34.9 pg (27.0-31.0); MEAN CORPUSCULAR HGB CONC 31.7 g/dL (32.0-36.0); MEAN CORPUSCULAR VOLUME 109.9 fL (80.0-94.0); MEAN PLATELET VOLUME 12.2 fL (7.4-11.4); MONOCYTES # (AUTO) 1.1 10^3/uL (0.0-1.0); MONOCYTES % (AUTO) 15.2 %; NEUTROPHILS # (AUTO) 5.1 10^3/uL (1.5-6.6); NEUTROPHILS % (AUTO) 73.1 %; PLT - PLATELET COUNT 108 10^3/uL (130-450); RED BLOOD COUNT 3.04 10^6/uL (4.70-6.10); RED CELL DISTRIBUTION WIDTH 13.7 % (12.0-15.0)
== END ==
LOC: LAB.WCP 08:00
PROVIDERS: ATTEND Family Medicine
DX: D69.6 Thrombocytopenia, unspecified (principal)
CPT/HCPCS: 36415; 85025